=== PATIENT | female | born 1980 ===

== ENCOUNTER 2020-08-23 20:50 | Inpatient (IN) | payer BC ==
[2020-08-23] MEDS ORDERED: Misoprostol 200 MCG Tab PO PRN (21:21)
[2020-08-23] MEDS ORDERED: Sodium Chloride 0.9% 10 ML Syringe FLUSH PRN (21:21)
[2020-08-23] MEDS ORDERED: Water For Irrigation,Sterile 1,000 ML Container IRR PRN (21:21)
[2020-08-23] MEDS ORDERED: Sodium Chloride 0.9% 2.5 ML Syringe FLUSH PRN (21:21)
[2020-08-23] MEDS ORDERED: Sodium Chloride 0.9% 10 ML SDV IV PRN (21:21)
[2020-08-23] MEDS ORDERED: Tranexamic Acid 1,000 MG in Sodium Chloride 0.9% 100 ML IV PRN (21:21)
[2020-08-23] MEDS ORDERED: Butorphanol 1 MG/ML SDV IVPUSH PRN (21:21)
[2020-08-23] MEDS ORDERED: Carboprost Tromethamine 250 MCG/1 ML Amp IM PRN (21:21)
[2020-08-23] MEDS ORDERED: Lidocaine 1% 50 ML MDV INJECT PRN (21:21)
[2020-08-23] MEDS ORDERED: Methylergonovine 0.2 MG/1 ML Amp IM PRN (21:21)
[2020-08-23] MEDS ORDERED: Nalbuphine 10 MG/1 ML Vial IVPUSH PRN (21:21)
[2020-08-23] MEDS ORDERED: Lactated Ringers 1,000 ML IV SCH (21:30)
[2020-08-23] MEDS ORDERED: Oxytocin/0.9 % Sodium Chloride 30 UNIT/500 ML BAG IV SCH (21:30)
--- NOTE | 2020-08-24 00:11 | PCM.LDHP ---
L&D History of Present Illness - General Date of Service: 08/24/20 Admit Problem/Dx: Patient Status Order with Admit Dx/Problem 08/23/20 21:04 Patient Status [ADT] Routine Admission Diagnosis/Problem Admission Diagnosis/Problem Source of Information: Patient History Limitations: Reports: No Limitations - History of Present Illness Introduction:: 38yo [id number] @37w GA here with SROM at 8pm tonight. Patient has also been having contractions throughout the day, currently 5mns apart. Reports some bloody show. care significant for Rh negative, otherwise labs unremarkable, GBS neg. also significant for h/o x10. Patient declined a scheduled repeat . - Related Data Allergies/Adverse Reactions: Allergies Allergy/AdvReac Type Severity Reaction Status Date / Time No Known Allergies Allergy Verified 08/23/20 21:20 Past Medical History [employer] History: Reports: , Other (See Below) Other OB/BYN History: 3 previous sections - Infectious Disease History Infectious Disease History: Reports: Chicken Pox Social & Family History - Family History Family Medical History: No Pertinent Family History - Tobacco Use Tobacco Use Status *Q: Never Tobacco User Second Hand Smoke Exposure: No - Caffeine Use Caffeine Use: Reports: Coffee, Soda - Recreational Drug Use Recreational Drug Use: No H&P Review of Systems - Review of Systems: Review Of Systems: See Below General: Reports: No Symptoms HEENT: Reports: No Symptoms Pulmonary: Reports: No Symptoms Cardiovascular: Reports: No Symptoms Gastrointestinal: Reports: No Symptoms Genitourinary: Reports: No Symptoms Musculoskeletal: Reports: No Symptoms Skin: Reports: No Symptoms Psychiatric: Reports: No Symptoms Neurological: Reports: No Symptoms Hematologic/Lymphatic: Reports: No Symptoms Immunologic: Reports: No Symptoms L&D Exam - Exam Exam: See Below - Vital Signs Weight: 88.451 kg - OB Specific Contraction Frequency (min): 5mns Contraction Intensity: Mild to Moderate Movement: Active Heart Tones: Present Presentation: Vertex Estimated Weight: 7lbs - Seth Score Seth Score Cervix Position: Anterior Seth Score Consistency: Soft Seth Score Effacement: 51-70% Seth Score Dilation: 3-4 cm Seth Score 's Station: -1 ,0 Seth Score Total: 10 - Exam General: Alert, Oriented Neck: Supple Lungs: Normal Respiratory Effort Cardiovascular: Regular Rate GI/Abdominal Exam: Soft, Non-Tender Back Exam: Normal Inspection Extremities: Normal Inspection Psychiatric: Alert, Normal Affect, Normal Mood - Patient Data Lab Results Last 24 hrs: Laboratory Results - last 24 hr 08/23/20 08/23/20 08/23/20 Range/Units 21:00 21:30 21:30 WBC 13.05 H (4.0-11.0) K/uL RBC 4.70 (4.30-5.90) M/uL Hgb 12.9 (12.0-16.0) g/dL Hct 38.4 (36.0-46.0) % MCV 81.7 (80.0-98.0) fL MCH 27.4 (27.0-32.0) pg MCHC 33.6 (31.0-37.0) g/dL RDW Std Deviation 42.3 (28.0-62.0) fl RDW Coeff of Bruno 14 (11.0-15.0) % Plt Count 273 (150-400) K/uL MPV 11.30 (7.40-12.00) fL Nucleated RBC % 0.0 /100WBC Nucleated RBCs # 0 K/uL SARS-CoV-2 RNA (LUIS ALFREDO) NEGATIVE (NEGATIVE) Blood Type B NEGATIVE Antibody Screen NEGATIVE Result Diagrams: 08/23/20 21:30 - Problem List (1) Term SNOMED Code(s): 79326375 ICD Code: Z34.90 - ENCNTR FOR SUPRVSN OF NORMAL , UNSP, UNSP TRIMESTER Status: Acute Current Visit: Yes (2) SROM (spontaneous rupture of membranes) SNOMED Code(s): 022024847 ICD Code: EFN5834 - Status: Acute Current Visit: Yes Problem List Initiated/Reviewed/Updated: Yes Orders Last 24hrs: Active Orders 24 hr Category Date Time Status Patient Status [ADT] Routine ADT 08/23/20 21:04 Active Heart Tones [RC] CONTINUOUS Care 08/23/20 21:21 Active Non Stress Test [RC] PER UNIT ROUTINE Care 08/23/20 21:04 Active May Shower [RC] ASDIRECTED Care 08/23/20 21:21 Active Notify Provider [RC] PRN Care 08/23/20 21:21 Active Up ad Charline [RC] ASDIRECTED Care 08/23/20 21:04 Active Vaginal Exam [RC] Click to Edit Care 08/23/20 21:04 Active Vaginal Exam [RC] PRN Care 08/23/20 21:21 Active Vital Signs [RC] PER UNIT ROUTINE Care 08/23/20 21:04 Active RPR (SYPHILIS SERO) W/ RFLX [REF] Routine Lab 08/23/20 21:30 Received Butorphanol [Stadol] Med 08/23/20 21:21 Active 1 mg IVPUSH Q1H PRN Carboprost Tromethamine [Hemabate DS] Med 08/23/20 21:21 Active 250 mcg IM ASDIRECTED PRN Lactated Ringers [Ringers, Lactated] 1,000 ml Med 08/23/20 21:30 Active IV ASDIRECTED Lidocaine 1% [Xylocaine 1%] Med 08/23/20 21:21 Active 50 ml INJECT ONETIME PRN Methylergonovine [Methergine] Med 08/23/20 21:21 Active 0.2 mg IM ASDIRECTED PRN Nalbuphine [Nubain] Med 08/23/20 21:21 Active 10 mg IVPUSH Q1H PRN Oxytocin/0.9 % Sodium Chloride [Oxytocin 30 Unit/500 ML Med 08/23/20 21:30 Active -NS] 30 unit in 500 ml IV TITRATE Sodium Chloride 0.9% [Normal Saline] Med 08/23/20 21:21 Active 10 ml IV ASDIRECTED PRN Sodium Chloride 0.9% [Saline Flush] Med 08/23/20 21:21 Active 10 ml FLUSH ASDIRECTED PRN Sodium Chloride 0.9% [Saline Flush] Med 08/23/20 21:21 Active 2.5 ml FLUSH ASDIRECTED PRN Tranexamic Acid [Cyklokapron] 1,000 mg Med 08/23/20 21:21 Active Sodium Chloride 0.9% [Normal Saline] 100 ml IV ONETIME Water For Irrigation,Sterile [Sterile Water for Med 08/23/20 21:21 Active Irrigation] 1,000 ml IRR ASDIRECTED PRN miSOPROStoL [Cytotec] Med 08/23/20 21:21 Active 200 mcg PO ONETIME PRN Scalp Electrode [WOMSER] Per Unit Routine Oth 08/23/20 21:21 Ordered Peripheral IV Insertion Adult [OM.PC] Routine Oth 08/23/20 21:21 Ordered Resuscitation Status Routine Resus Stat 08/23/20 21:04 Ordered Medication Orders Butorphanol Tartrate (Stadol) 1 mg IVPUSH Q1H PRN PRN Reason: Pain Carboprost Tromethamine (Hemabate Ds) 250 mcg IM ASDIRECTED PRN PRN Reason: Post Hemorrhage Lactated Ringer's (Ringers, Lactated) 1,000 mls @ 150 mls/hr IV ASDIRECTED MONISHA Oxytocin/Sodium Chloride (Oxytocin 30 Unit/500 Ml-Ns) 30 unit in 500 mls @ 999 mls/hr IV TITRATE MONISHA Tranexamic Acid 1,000 mg/ (Sodium Chloride) 110 mls @ 660 mls/hr IV ONETIME PRN PRN Reason: Bleeding Lidocaine HCl (Xylocaine 1%) 50 ml INJECT ONETIME PRN PRN Reason: Laceration repair Methylergonovine Maleate (Methergine) 0.2 mg IM ASDIRECTED PRN PRN Reason: Post Hemorrhage Misoprostol (Cytotec) 200 mcg PO ONETIME PRN PRN Reason: Post Hemorrhage Nalbuphine HCl (Nubain) 10 mg IVPUSH Q1H PRN PRN Reason: Pain (severe 7-10) Sodium Chloride (Saline Flush) 10 ml FLUSH ASDIRECTED PRN PRN Reason: Keep Vein Open Sodium Chloride (Saline Flush) 2.5 ml FLUSH ASDIRECTED PRN PRN Reason: Keep Vein Open Sodium Chloride (Normal Saline) 10 ml IV ASDIRECTED PRN PRN Reason: IV Use Sterile Water (Sterile Water For Irrigation) 1,000 ml IRR ASDIRECTED PRN PRN Reason: delivery Assessment/Plan Comment:: 39yo [id number] at 37w GA admitted in labor with SROM Cat 1 tracing, Seth score of 10. H/o x10 Discussion of repeat C-sestion vs TOLAC and patient chose TOLAC. We will continue with expectant management. Provider physically present in house when patient was found to be 6cm dilated.
[2020-08-24] MEDS ORDERED: Oxytocin 10 Units/1 ML SDV ONE (04:33)
[2020-08-24] MEDS: Oxytocin 10 Units/1 ML SDV IM ONE (04:41)
--- NOTE | 2020-08-24 04:58 | PCM.DEL ---
L & D Note - General Info Date of Service: 08/24/20 Mother's Due Date: 09/14/20 - Delivery Note Labor: Spontaneous Delivery Outcome: Livebirth Infant Delivery Method: Spontaneous Vaginal Delivery-Single Delivery Mode: Spontaneous Presentation: Vertex Nuchal Cord: Present Anesthesia Type: None Episiotomy Type: None Laceration: None Placenta: Intact, Spontaneous Cord: 3 Vessels Estimated Blood Loss: 100 Resuscitation Needed: No : Stimulated, [place] Used Score 1 min: 8 Score 5 min: 9 Delivery Comments (Free Text/Narrative):: 39yo G15 now [id number] S/P @ 37w GA after SROM course was remarkable for Rh negative status of a live male, weight pending and Apgars 8/9. Delivered JINA, loose nuchal cord x1 which was reduced, No meconium. Vertex and body delivered without difficulty. Cord clamped and cut. Baby was stimulated and placed on Mom's abdomen. Placenta delivered spontaneously. Fundus firm, minimal bleeding. Placenta appears intact with 3 vessel cord. Perineum and vagina inspected, no laceration noted. EBL 100cc. Patient tolerated procedure well, recovering in LDR. by her side. - General Info Date of Service: 08/24/20 Admission Dx/Problem (Free Text): Patient Status Order with Admit Dx/Problem 08/23/20 21:04 Patient Status [ADT] Routine Admission Diagnosis/Problem Admission Diagnosis/Problem Functional Status: Reports: Pain Controlled - Review of Systems General: Reports: No Symptoms HEENT: Reports: No Symptoms Pulmonary: Reports: No Symptoms Cardiovascular: Reports: No Symptoms Gastrointestinal: Reports: No Symptoms Genitourinary: Reports: No Symptoms Musculoskeletal: Reports: No Symptoms Skin: Reports: No Symptoms Neurological: Reports: No Symptoms Psychiatric: Reports: No Symptoms - Patient Data Weight - Most Recent: 88.451 kg Lab Results Last 24 Hours: Laboratory Results - last 24 hr 08/23/20 08/23/20 08/23/20 Range/Units 21:00 21:30 21:30 WBC 13.05 H (4.0-11.0) K/uL RBC 4.70 (4.30-5.90) M/uL Hgb 12.9 (12.0-16.0) g/dL Hct 38.4 (36.0-46.0) % MCV 81.7 (80.0-98.0) fL MCH 27.4 (27.0-32.0) pg MCHC 33.6 (31.0-37.0) g/dL RDW Std Deviation 42.3 (28.0-62.0) fl RDW Coeff of Bruno 14 (11.0-15.0) % Plt Count 273 (150-400) K/uL MPV 11.30 (7.40-12.00) fL Nucleated RBC % 0.0 /100WBC Nucleated RBCs # 0 K/uL SARS-CoV-2 RNA (LUIS ALFREDO) NEGATIVE (NEGATIVE) Blood Type B NEGATIVE Antibody Screen NEGATIVE Med Orders - Current: Current Medications Butorphanol Tartrate (Stadol) 1 mg IVPUSH Q1H PRN PRN Reason: Pain Carboprost Tromethamine (Hemabate Ds) 250 mcg IM ASDIRECTED PRN PRN Reason: Post Hemorrhage Lactated Ringer's (Ringers, Lactated) 1,000 mls @ 150 mls/hr IV ASDIRECTED MONISHA Oxytocin/Sodium Chloride (Oxytocin 30 Unit/500 Ml-Ns) 30 unit in 500 mls @ 999 mls/hr IV TITRATE MONISHA Tranexamic Acid 1,000 mg/ (Sodium Chloride) 110 mls @ 660 mls/hr IV ONETIME PRN PRN Reason: Bleeding Lidocaine HCl (Xylocaine 1%) 50 ml INJECT ONETIME PRN PRN Reason: Laceration repair Methylergonovine Maleate (Methergine) 0.2 mg IM ASDIRECTED PRN PRN Reason: Post Hemorrhage Misoprostol (Cytotec) 200 mcg PO ONETIME PRN PRN Reason: Post Hemorrhage Nalbuphine HCl (Nubain) 10 mg IVPUSH Q1H PRN PRN Reason: Pain (severe 7-10) Sodium Chloride (Saline Flush) 10 ml FLUSH ASDIRECTED PRN PRN Reason: Keep Vein Open Sodium Chloride (Saline Flush) 2.5 ml FLUSH ASDIRECTED PRN PRN Reason: Keep Vein Open Sodium Chloride (Normal Saline) 10 ml IV ASDIRECTED PRN PRN Reason: IV Use Sterile Water (Sterile Water For Irrigation) 1,000 ml IRR ASDIRECTED PRN PRN Reason: delivery Discontinued Medications Oxytocin (Pitocin) 20 unit IM ONETIME ONE Stop: 08/24/20 04:30 Last Admin: 08/24/20 04:41 Dose: 20 unit Documented by: Oxytocin (Pitocin) Confirm Administered Dose 20 unit .ROUTE .STK-MED ONE Stop: 08/24/20 04:34 - Exam General: Alert, Oriented Neck: Supple Lungs: Normal Respiratory Effort Cardiovascular: Regular Rate GI/Abdominal Exam: Soft, Non-Tender (Female) Exam: Normal External Exam Extremities: Normal Inspection Psy/Mental Status: Alert, Normal Affect, Normal Mood - Problem List & Annotations (1) Term SNOMED Code(s): 16232510 Code(s): Z34.90 - ENCNTR FOR SUPRVSN OF NORMAL , UNSP, UNSP TRIMESTER Status: Acute Current Visit: Yes (2) SROM (spontaneous rupture of membranes) SNOMED Code(s): 860398093 Code(s): ZBA7356 - Status: Acute Current Visit: Yes - Problem List Review Problem List Initiated/Reviewed/Updated: Yes - My Orders Last 24 Hours: My Active Orders 08/23/20 21:04 Patient Status [ADT] Routine Non Stress Test [RC] PER UNIT ROUTINE Up ad Charline [RC] ASDIRECTED Vaginal Exam [RC] Click to Edit Vital Signs [RC] PER UNIT ROUTINE Resuscitation Status Routine 08/23/20 21:21 Heart Tones [RC] CONTINUOUS May Shower [RC] ASDIRECTED Notify Provider [RC] PRN Vaginal Exam [RC] PRN Butorphanol [Stadol] 1 mg IVPUSH Q1H PRN Carboprost Tromethamine [Hemabate DS] 250 mcg IM ASDIRECTED PRN Lidocaine 1% [Xylocaine 1%] 50 ml INJECT ONETIME PRN Methylergonovine [Methergine] 0.2 mg IM ASDIRECTED PRN Nalbuphine [Nubain] 10 mg IVPUSH Q1H PRN Sodium Chloride 0.9% [Normal Saline] 10 ml IV ASDIRECTED PRN Sodium Chloride 0.9% [Saline Flush] 10 ml FLUSH ASDIRECTED PRN Sodium Chloride 0.9% [Saline Flush] 2.5 ml FLUSH ASDIRECTED PRN Tranexamic Acid [Cyklokapron] 1,000 mg Sodium Chloride 0.9% [Normal Saline] 100 ml IV ONETIME Water For Irrigation,Sterile [Sterile Water for Irrigation] 1,000 ml IRR ASDIRECTED PRN miSOPROStoL [Cytotec] 200 mcg PO ONETIME PRN Scalp Electrode [WOMSER] Per Unit Routine Peripheral IV Insertion Adult [OM.PC] Routine 08/23/20 21:30 RPR (SYPHILIS SERO) W/ RFLX [REF] Routine Lactated Ringers [Ringers, Lactated] 1,000 ml IV ASDIRECTED Oxytocin/0.9 % Sodium Chloride [Oxytocin 30 Unit/500 ML-NS] 30 unit in 500 ml IV TITRATE - Plan Plan:: 39yo G15 now L30-7-0-90 S/P uncomplicated at 37w GA after she was admitted with SROM Mom and baby are doing well. Rhogam danielal sent care per unit protocol.
[2020-08-24] MEDS ORDERED: Ibuprofen 800 MG Tab PO PRN (05:02)
[2020-08-24] MEDS ORDERED: Acetaminophen 500 MG Tab PO PRN ×2 (05:02)
[2020-08-24] MEDS ORDERED: Lanolin 100% Cream 7 GM Tube TOP PRN (05:02)
[2020-08-24] MEDS ORDERED: Bisacodyl 10 MG Supp RECTAL PRN (05:02)
[2020-08-24] MEDS ORDERED: Ibuprofen 400 MG Tab PO PRN (05:02)
[2020-08-24] MEDS ORDERED: Benzocaine/Menthol 20%-0.5% Spray 78 GM Cannister TOP PRN (05:02)
[2020-08-24] MEDS ORDERED: Witch Hazel Medicated Pads 40/Jar TOP PRN (05:02)
[2020-08-24] MEDS ORDERED: Oxytocin 10 Units/1 ML SDV IM ONE (11:55)
[2020-08-24] MEDS: Docusate Sodium 100 MG Cap PO PRN (20:44)
--- NOTE | 2020-08-25 09:28 | PCM.DCSUM1 ---
Discharge Summary - Hospital Course Free Text/Narrative:: Danyell is a 39 yo PPD1 S/P uncomplicated to term NBM. B neg/B neg, Ab screen neg, RI, GBS neg. Hx: Multigravida, AMA. RhoGam prophylaxis not indicated at this time. Patient has no complaints or concerns at this time. Patient is exclusively well, resting comfortably in bed with in arms latched to left breast. Patient reports she is eating, voiding, ambulating independently and without difficulty. Patient denies any problems or concerns at this time except mild-moderate intermittent uterine cramping relieved with Tylenol and Ibuprofen. Declines ibuprofen prescription at this time. Patient reports moderate to heavy vaginal bleeding with no clots. Patient verbalizes her readiness to be discharged home today. Diagnosis: Stroke: No - Discharge Data Discharge Date: 08/25/20 Discharge Disposition: Home, Self-Care Condition: Good - Referral to Home Health Primary Care Physician: PCP None - Discharge Diagnosis/Problem(s) (1) (normal spontaneous vaginal delivery) SNOMED Code(s): 45565085, 331613560 ICD Code: O80 - ENCOUNTER FOR FULL-TERM UNCOMPLICATED DELIVERY Status: Acute Priority: High Current Visit: Yes (2) Lactating mother SNOMED Code(s): 608508383, 310435812 ICD Code: Z39.1 - ENCOUNTER FOR CARE AND EXAMINATION OF LACTATING MOTHER Status: Acute Priority: High Current Visit: Yes - Patient Instructions Diet: Usual Diet as Tolerated, Regular Diet as Tolerated, Drink 8-10+ Glasses/Day Activity: No Strenuous Activities, Rest and Relax Today Driving: May Drive Today Showering/Bathing: May Shower Showering/Bathing, Other: May sitz bath for perineal comfort Notify Provider of: Fever, Increased Pain, Swelling and Redness, Drainage, Nausea and/or Vomiting - Discharge Plan *PRESCRIPTION DRUG MONITORING PROGRAM REVIEWED*: No *COPY OF PRESCRIPTION DRUG MONITORING REPORT IN PATIENT ASHLYN: No Tobacco Cessation Medication: Prescription Refused Oxygen Therapy Mode: Room Air - Discharge Summary/Plan Comment DC Time >30 min.: Yes (May D/C home today. F/U if office for 6-week visit.) - General Info Date of Service: 08/25/20 Admission Dx/Problem (Free Text: Patient Status Order with Admit Dx/Problem 08/23/20 21:04 Patient Status [ADT] Routine Admission Diagnosis/Problem Admission Diagnosis/Problem Functional Status: Reports: Pain Controlled, Tolerating Diet, Ambulating, Urinating - Review of Systems General: Reports: No Symptoms HEENT: Reports: No Symptoms Pulmonary: Reports: No Symptoms Cardiovascular: Reports: No Symptoms Gastrointestinal: Reports: No Symptoms Genitourinary: Reports: No Symptoms Musculoskeletal: Reports: No Symptoms Skin: Reports: No Symptoms Neurological: Reports: No Symptoms Psychiatric: Reports: No Symptoms - Patient Data Vitals - Most Recent: Last Vital Signs Temp 97 F 08/25/20 04:02 Pulse 60 08/25/20 04:02 Resp 14 08/25/20 04:02 BP 118/59 L 08/25/20 04:02 Pulse Ox 95 08/25/20 04:02 Weight - Most Recent: 195 lb Lab Results - Last 24 hrs: Laboratory Results - last 24 hr 08/25/20 Range/Units 04:35 Hgb 11.7 L (12.0-16.0) g/dL Hct 35.7 L (36.0-46.0) % Med Orders - Current: Current Medications Acetaminophen (Tylenol Extra Strength) 500 mg PO Q4H PRN PRN Reason: Pain Acetaminophen (Tylenol Extra Strength) 1,000 mg PO Q4H PRN PRN Reason: Pain Benzocaine/Menthol (Dermoplast Pain Relief 20%-0.5% [place]) 78 gm TOP ASDIRECTED PRN PRN Reason: Perineal Comfort Measure Bisacodyl (Dulcolax) 10 mg RECTAL ONETIME PRN PRN Reason: Constipation Butorphanol Tartrate (Stadol) 1 mg IVPUSH Q1H PRN PRN Reason: Pain Carboprost Tromethamine (Hemabate Ds) 250 mcg IM ASDIRECTED PRN PRN Reason: Post Hemorrhage Docusate Sodium (Colace) 100 mg PO BID PRN PRN Reason: Constipation Last Admin: 08/24/20 20:44 Dose: 100 mg Documented by: Emollient Ointment (Lansinoh Hpa) 0 gm TOP ASDIRECTED PRN PRN Reason: Sore Nipples Lactated Ringer's (Ringers, Lactated) 1,000 mls @ 150 mls/hr IV ASDIRECTED MONISHA Oxytocin/Sodium Chloride (Oxytocin 30 Unit/500 Ml-Ns) 30 unit in 500 mls @ 999 mls/hr IV TITRATE MONISHA Tranexamic Acid 1,000 mg/ (Sodium Chloride) 110 mls @ 660 mls/hr IV ONETIME PRN PRN Reason: Bleeding Ibuprofen (Motrin) 400 mg PO Q4H PRN PRN Reason: Pain Ibuprofen (Motrin) 800 mg PO Q6H PRN PRN Reason: Pain Lidocaine HCl (Xylocaine 1%) 50 ml INJECT ONETIME PRN PRN Reason: Laceration repair Methylergonovine Maleate (Methergine) 0.2 mg IM ASDIRECTED PRN PRN Reason: Post Hemorrhage Misoprostol (Cytotec) 200 mcg PO ONETIME PRN PRN Reason: Post Hemorrhage Nalbuphine HCl (Nubain) 10 mg IVPUSH Q1H PRN PRN Reason: Pain (severe 7-10) Sodium Chloride (Saline Flush) 10 ml FLUSH ASDIRECTED PRN PRN Reason: Keep Vein Open Sodium Chloride (Saline Flush) 2.5 ml FLUSH ASDIRECTED PRN PRN Reason: Keep Vein Open Sodium Chloride (Normal Saline) 10 ml IV ASDIRECTED PRN PRN Reason: IV Use Sterile Water (Sterile Water For Irrigation) 1,000 ml IRR ASDIRECTED PRN PRN Reason: delivery Witch Tammy (Tucks) 1 pad TOP ASDIRECTED PRN PRN Reason: comfort care Discontinued Medications Oxytocin (Pitocin) 20 unit IM ONETIME ONE Stop: 08/24/20 04:30 Last Admin: 08/24/20 04:41 Dose: 20 unit Documented by: Oxytocin (Pitocin) Confirm Administered Dose 20 unit .ROUTE .STK-MED ONE Stop: 08/24/20 04:34 Oxytocin (Pitocin) 20 unit IM ASDIRECTED ONE Stop: 08/24/20 11:56 - Exam General: Reports: Alert, Oriented, Cooperative, No Acute Distress HEENT: Reports: Pupils Equal, Pupils Reactive, Mucous Membr. Moist/[place] Neck: Reports: Supple Lungs: Reports: Clear to Auscultation, Normal Respiratory Effort Cardiovascular: Reports: Regular Rate, Regular Rhythm GI/Abdominal Exam: Normal Bowel Sounds, Soft, Non-Tender, No Organomegaly, No Distention (Female) Exam: Enlarged Uterus ( uterus, firm U-1), Vaginal Bleeding (Moderate to heavy rubra lochia, no clots) Rectal (Female) Exam: Deferred Back Exam: Reports: Normal Inspection, Full Range of Motion Extremities: Normal Inspection, Normal Range of Motion, Non-Tender, No Pedal Edema, Normal Capillary Refill Skin: Reports: Warm, Dry, Intact Neurological: Reports: No New Focal Deficit Psy/Mental Status: Reports: Alert, Normal Affect, Normal Mood
== END 2020-08-25 14:02 | disposition home or self-care (01) | DRG 560 ==
LOC: MW.OBCHECK 20:50 → MW.OB 20:50 → MW.OBCHECK 21:10 → OBSVTOIN 08-24 04:21 → MW.OB 08-24 09:24
PROVIDERS: ADMIT Obstetrics & Gynecology Obstetrics; ATTEND Obstetrics & Gynecology Obstetrics
PROC: 10E0XZZ Delivery of Products of Conception, External Approach (ICD-10-PCS; principal; 2020-08-24)
DX: O80 Encounter for full-term uncomplicated delivery (principal); Z37.0 Single live birth; Z3A.37 37 weeks gestation of pregnancy; Z20.822 Contact with and (suspected) exposure to COVID-19
CPT/HCPCS: 36415; 59025; 59409; 85014; 85018; 85027; 86592; 86850; 86900; 86901; A9270-GY; J2590; U0002